=== PATIENT | female | born 1995 | race Two or more races ===

== ENCOUNTER → 2023-12-26 | Outpatient (CLI) | payer OTHER, SELFPAY ==
[2023-12-26 10:27] LABS: Thyroid Stimulating Hormone 3.89 uIU/mL (0.55-4.78)
[2023-12-26 11:17] LABS: RA Screen Negative (Negative)
[2024-01-01 15:34] LABS: Sjogren's antibody (SS-A) <1.0 NEG AI (<1.0 NEGATIVE); Sm Antibody <1.0 NEG AI (<1.0 NEGATIVE)
[2024-01-02 06:19] LABS: ANA Pattern NUCLEAR, SPECKLED; ANA Screen, IFA POSITIVE (NEGATIVE); T3,Total* 149 ng/dL (76-181)
[2024-01-02 06:20] LABS: ANA Pattern NUCLEAR, HOMOGENEOUS; Actin Antibody (IgG)* <20 U; Complement Component C3* 162 mg/dL (83-193); Complement Component C4c* 17 mg/dL (15-57); DNA (ds) Antibody* <1 IU/mL; Gastric Parietal Cell Ab* <20.0 U; Mitochondrial Ab NEGATIVE (NEGATIVE); Myocardial Ab, IF NEGATIVE (NEGATIVE); Scl-70 Antibody* <1.0 NEG AI (<1.0 NEGATIVE); Sjogren's Antibody (SS-B) <1.0 NEG AI (<1.0 NEGATIVE); Sm/RNP Antibody <1.0 NEG AI (<1.0 NEGATIVE); Striated Muscle Ab NEGATIVE (NEGATIVE); Thyroid Peroxidase Antibodies* 10 IU/mL (<9)
== END | disposition home or self-care (01) ==
PROVIDERS: PCP Family Medicine; Referring Provider Registered Nurse; Visit Provider Registered Nurse
DX: E03.9 Hypothyroidism, unspecified (principal)
CPT/HCPCS: 36415; 83516; 84439; 84443; 84480; 86015; 86038; 86039; 86160; 86225; 86235; 86255; 86376; 86430